=== PATIENT | male | born 1980 | race Caucasian/White ===

== ENCOUNTER 2019-07-26 16:43 | Emergency (ER) | payer SELFPAY ==
--- NOTE | ~2019-07-26 | XR_ITS ---
EXAMINATION: XR abdomen/kub 1V EXAM DATE: 07/26/2019 17:32 INDICATION: abdomen pain for 1x week. no bm over a week. pain mid to upper left side of abdomen is t he worst TECHNIQUE: Frontal projection of the upper abdomen, frontal projection lower abdomen/pelvis for inter pretation. There is no prior study for comparison. FINDINGS: There is moderate amount of colonic stool and gas. No small bowel dilation, nonobstructiv e bowel gas pattern. There are no suspicious calcifications identified. There is no organomegaly suspected. The bones are unremarkable. IMPRESSION: Moderate amount of colonic stool. Reviewed, dictated and finalized at location A.
[2019-07-26 16:53] VITALS: BP 124/93; PULSE 106; RESP 18; TEMP 36.6; O2SAT 100
--- NOTE | 2019-07-26 17:09 | ED.GENADULT ---
HPI - General Adult General Chief complaint: Abdominal Pain Stated complaint: abd pain Time Seen by Provider: 07/26/19 17:10 Source: patient and RN notes reviewed Mode of arrival: ambulatory Limitations: no limitations History of Present Illness HPI narrative: This is a 39 years old male presented office for evaluation of possible constipation. He has not had a bowel movement for 7-day. Associated with nausea, unable to eat due to pain. He attempt to eat cheeseburger last night but he able to only keep about 2 bites down. He has tried [id number] stool softener, milk of magnesia, and lots of water with unsuccessful going to the bathroom. Denies history of bowel obstruction or diverticulitis. Related Data Allergies Allergy/AdvReac Type Severity Reaction Status Date / Time ketorolac Allergy Severe Other Verified 10/17/18 18:54 Review of Systems Review of Systems: Narrative: CONSTITUTIONAL: Denies fever, chills ENT: Denies congestion CARDIOVASCULAR: Denies chest pain RESPIRATORY: Denies dyspnea GASTROINTESTINAL: Reports abdominal pain, nausea, self induced vomiting. GENITOURINARY: Denies urinary symptoms SKIN: Denies rash MUSCULOSKELETAL: Denies acute back pain NEUROLOGIC: Denies lightheaded PMFSH Past Medical History Medical History (Updated 07/26/19 @ 17:51 by TIEN Johnston) History of peptic ulcer disease Social History Social History (Updated 07/26/19 @ 17:23 by TIEN Johnston) Smoking status: Current every day smoker Gender identity (if verbalized by the patient): Male Comments At time of signature, I agree with nursing past medical, surgical, social and family history. There is no relevant family history pertinent to the presenting complaint. Exam Narrative: Exam Narrative: GENERAL: This is a well-nourished, well-developed patient, older than state age, in no apparent distress;but appears uncomfortable in pain. CARDIOVASCULAR: Regular rate and rhythm without murmurs, gallops, or rubs. RESPIRATORY: Clear to auscultation. Breath sounds equal bilaterally. No wheezes, rales, or rhonchi. GASTROINTESTINAL:tenderness throughout with palpation, nondistended. Bowel sounds are active. Patient is guarding. SKIN: warm, intact with no suspicious lesions or rash, good texture and turgor. NEURO: awake, alert, and oriented to person, place and time. There were no obvious focal neurologic abnormalities. Steady gait BACK: Nontender without deformity or crepitance. No flank tenderness. [place] Coma Scale Eye Opening: Spontaneous 4 Ree Coma Scale Motor: Obeys Commands 6 [place] Coma Scale Verbal: Oriented 5 Course Consultations Consultation #1: I spoke to Dr. Stout at [facility] regarding patient's case, he recommended that he should try enema and MiraLAX first and if things are not successful then he can seek ER for further evaluation. Date: 07/26/19 Time: 17:55 Vital Signs Vital signs: Vital Signs Temperature 97.9 F 07/26/19 16:53 Pulse Rate 106 H 07/26/19 16:53 Respiratory Rate 18 07/26/19 16:53 Blood Pressure 124/93 H 07/26/19 16:53 Pulse Oximetry 100 07/26/19 16:53 Temperature 97.9 F 07/26/19 16:53 Pulse Rate 106 H 07/26/19 16:53 Respiratory Rate 18 07/26/19 16:53 Blood Pressure 124/93 H 07/26/19 16:53 Pulse Oximetry 100 07/26/19 16:53 Medical Decision Making MDM Narrative Medical decision making narrative: Discharge instructions reviewed with patient, as well as provided in writing per nursing staff. The instructions also include specific and strict return/GO TO THE ER as well as f/u information. All questions have been answered, and the patient deny any further questions with discharge and discharge plan. Differential Diagnosis Differential Diagnosis: Colitis, diverticulitis, diverticulosis, constipation, bowel obstruction Medical Records Medical records reviewed: Yes I reviewed the patient's medical records. Vital Signs Vital Signs: Vit
== END 2019-07-26 17:55 | disposition home or self-care (01) ==
PROVIDERS: Emergency Provider Nurse Practitioner
DX: K59.00 Constipation, unspecified (principal); F17.200 Nicotine dependence, unspecified, uncomplicated
CPT/HCPCS: 74018; 99213; G0463